=== PATIENT | male | born 1980 | race African-American/Black ===

== ENCOUNTER 2017-05-10 03:18 | Emergency (ER) | payer OTHER ==
[2017-05-10 04:24] VITALS: BP 132/78; PULSE 86; TEMP 98.7; BMI 30.4
--- NOTE | 2017-05-10 04:43 | PDOC ---
Attending Attestation - HPI HPI: 05/10/17 04:43 The patient is a 36 yo Male with no significant past medical history, who presents to the ED for evaluation of a sore throat x 1 day. The patient states he "just got over the flu or something", and reportedly developed pain to his throat. Alllergies: NKDA Documentation prepared by Katie Sanabria, acting as medical assistant ob gyn for Ambrocio Santos DO <Katie Sanabria - Last Filed: 05/10/17 04:43> - Resident Resident Name: Elkin Thomas - ED Attending Attestation I have performed the following: I have examined & evaluated the patient, The case was reviewed & discussed with the resident, I agree w/resident's findings & plan, Exceptions are as noted - Physicial Exam PE: 05/10/17 04:46 *Physical Exam General Appearance: Yes: Appropriately Dressed. No: Apparent Distress, Intoxicated HEENT: positive: EOMI, ABBE, erthyematous, enlarged tonsils R>L + white exudate. slightly muffled voice, no drooling or stridor, TMs Normal, Pharynx Normal. negative: Pale Conjunctivae, Photophobia, Scleral Icterus (R), Scleral Icterus (L) Neck: positive: Trachea midline, Normal Thyroid, Supple. negative: Tender, Rigid, Carotid bruit, Stridor, Lymphadenopathy (R), Lymphadenopathy (L), Thyromegaly Respiratory/Chest: positive: Lungs Clear, Normal Breath Sounds. negative: Chest Tender, Respiratory Distress, Accessory Muscle Use, Labored Respiration, RES, Crackles, Rales, Rhonchi, Stridor, Wheezing, Dullness Cardiovascular: positive: Regular Rhythm, Regular Rate, S1, S2. negative: Edema , JVD, Murmur, Bradycardia, Tachycardia Vascular Pulses: Dorsalis-Pedis (R): 2+, Doralis-Pedis (L): 2+ Gastrointestinal/Abdominal: positive: Normal Bowel Sounds, Flat, Soft. negative : Tender, Organomegaly, Pulsatile Mass, Increased Bowel Sounds, Decreased BS, Distended, Guarding, Rebound, Hernia, Hepatomegaly, Spleenomegaly Lymphatic: negative: Adenopathy, Tenderness Musculoskeletal: positive: Normal Inspection. negative: CVA Tenderness, Decreased Range of Motion Extremity: positive: Normal Capillary Refill, Normal Inspection, Normal Range of Motion, Pelvis Stable. negative: Tender, Pedal Edema, Swelling, Erythema Integumentary: positive: Normal Color, Dry, Warm. negative: Cyanotic, Erythema , Jaundice, Rash Neurologic: positive: rodent control worker II-XII NML intact, Fully Oriented, Alert, Normal Mood/ Affect, Motor Strength 5/5. negative: EOM Palsy, Facial Droop, Sensory Deficit - Medical Decision Making 05/10/17 04:48 Abx give. Pt treated and released. <Ambrocio Santos - Last Filed: 05/10/17 04:49>
[2017-05-10] MEDS ORDERED: DEXAMETHASONE 4 MG TABLET (FP) PO ONE (04:49)
[2017-05-10] MEDS ORDERED: AZITHROMYCIN 250 MG TABLET PO ONE (04:52)
[2017-05-10] MEDS ORDERED: LIDOCAINE VISCOUS 2% ORAL/TOP 20 ML UNIT-DOSE CUP MM ONE (04:54)
--- NOTE | 2017-05-10 04:58 | PDOC ---
History of Present Illness - General Chief Complaint: Sore Throat Stated Complaint: SORE THROAT Time Seen by Provider: 05/10/17 04:29 - History of Present Illness Initial Comments: 36 year old male with PMH of seizure disordered (on Keppra daily) presenting for sore throat and trouble swallowing. States that he had a fever, muscle pains , and a slight cough on Sunday that resolved on Sunday. However, he started to decline further and had a worsening sore throat, with trouble swallowing food. He no longer has fevers but is primarily concerned about the worsening sore throat and is anxious about the swelling in his throat. Denies cough, nausea, vomiting, diarrhea, chest pain, or sick contacts. 05/10/17 04:58 Past History - Past Medical History Allergies/Adverse Reactions: Allergies Allergy/AdvReac Type Severity Reaction Status Date / Time No Known Allergies Allergy Verified 07/28/14 07:27 Home Medications: Ambulatory Orders Azithromycin 250 mg PO DAILY 4 Days #4 tablet 05/10/17 Levetiracetam [Keppra -] 500 mg PO BID 05/10/17 Seizures: Yes - Suicide/Smoking/Psychosocial Hx Smoking History: Never smoked Number of Cigarettes Smoked Daily: 0 Information on smoking cessation initiated: No Hx Alcohol Use: No Drug/Substance Use Hx: No Review of Systems - Review of Systems Constitutional: Yes: Loss of Appetite. No: Chills, Diaphoresis, Fever HEENTM: Yes: Throat Pain, Throat Swelling. No: Blurred Vision Respiratory: No: Cough, Shortness of Breath Cardiac (ROS): No: Chest Pain, Edema, Palpitations ABD/GI: No: Diarrhea, Nausea, Vomiting Integumentary: No: Bruising, Change in Color, Erythema Neurological: No: Headache, Numbness *Physical Exam - Vital Signs Last Vital Signs Temp Pulse Resp BP Pulse Ox 98.7 F 86 18 132/78 99 05/10/17 04:21 05/10/17 04:21 05/10/17 04:21 05/10/17 04:21 05/10/17 04:21 - Physical Exam General Appearance: Yes: Nourished, Appropriately Dressed. No: Apparent Distress HEENT: positive: EOMI, ABBE, Pharyngeal Erythema, Tonsillar Erythema. negative : Normal ENT Inspection, Normal Voice (Slightly muffled voice but protecting airway) Neck: positive: Trachea midline, Normal Thyroid, Supple, Lymphadenopathy (R), Lymphadenopathy (L). negative: Tender, Rigid Respiratory/Chest: positive: Lungs Clear, Normal Breath Sounds. negative: Chest Tender, Respiratory Distress Cardiovascular: positive: Regular Rhythm, Regular Rate Gastrointestinal/Abdominal: positive: Normal Bowel Sounds, Flat, Soft. negative : Tender Integumentary: positive: Normal Color, Dry, Warm Neurologic: positive: Fully Oriented, Alert, Normal Mood/Affect, Normal Response Medical Decision Making - Medical Decision Making 36 year old male with history of seizures presenting with sore throat. This is most concerning for a viral pharyngitis vs. bacterial pharyngitis given the timeline of the symptoms. However, he is protecting his airway. Gave one dose of decadron 45, viscous lidocaine, azithromycin, and wrote a prescription to finish his course of antibiotics. Flu negative, Rapid Strep negative. Sent home with return precautions. 05/10/17 05:11 *DC/Admit/Observation/Transfer Diagnosis at time of Disposition: Pharyngitis Qualifiers: Pharyngitis/tonsillitis etiology: unspecified etiology Qualified Code(s): J02.9 - Acute pharyngitis, unspecified - Discharge Dispostion Disposition: HOME Condition at time of disposition: Improved Admit: No - Prescriptions Prescriptions: Azithromycin 250 mg PO DAILY 4 Days #4 tablet - Referrals Referrals: Kelsey Ring [Primary Care Provider] - - Patient Instructions Printed Discharge Instructions: DI for Pharyngitis/Tonsillopharyngitis -- Adult Additional Instructions: You were seen for your sore throat. This is most likely a viral pharyngitis but we will give you antibiotics to cover you in the case of a bacterial infection. Please return to the ED if you are getting worse despite the antibiotics. - Post Discharge Activity
[2017-05-10] MEDS ORDERED: DEXAMETHASONE SOD PHOSPHATE 10 MG/1 ML VIAL ONE (05:05)
[2017-05-10] MEDS ORDERED: AZITHROMYCIN 250 MG TABLET ONE (05:05)
[2017-05-10] MEDS ORDERED: LIDOCAINE VISCOUS 2% ORAL/TOP 20 ML UNIT-DOSE CUP ONE (05:05)
[2017-05-10] MEDS ORDERED: AZITHROMYCIN 500 MG TABLET ONE (05:07)
[2017-05-10] MEDS ORDERED: DEXAMETHASONE SOD PHOSPHATE 10 MG/1 ML VIAL IVPUSH ONE (05:15)
== END 2017-05-10 06:07 | disposition home or self-care (01) ==
LOC: JER 03:18
PROC: 3E0333Z Introduction of Anti-inflammatory into Peripheral Vein, Percutaneous Approach (ICD-10-PCS; principal; 2017-05-10)
DX: J02.9 Acute pharyngitis, unspecified (principal)
CPT/HCPCS: 87070; 87077; 87430; 87804; 99281-25